=== PATIENT | male | born 1950 | race Caucasian/White ===

== ENCOUNTER 2022-03-29 15:11 | Emergency (ER) | payer MEDICARE, OTHER ==
[2022-03-29] MEDS ORDERED: Acetaminophen 500 MG TAB ONE (17:18)
[2022-03-29] MEDS ORDERED: Ondansetron ODT 4 MG TAB ONE (17:18)
[2022-03-29] MEDS ORDERED: Cyclobenzaprine 10 MG TAB ONE (17:18)
== END 2022-03-29 17:30 | disposition home or self-care (01) ==
LOC: MADERS 15:11
DX: S16.1XXA Strain of muscle, fascia and tendon at neck level, initial encounter (principal); E03.9 Hypothyroidism, unspecified; E11.9 Type 2 diabetes mellitus without complications; E78.5 Hyperlipidemia, unspecified; I10 Essential (primary) hypertension; Z79.899 Other long term (current) drug therapy; W19.XXXA Unspecified fall, initial encounter
CPT/HCPCS: 99283; Q0162